=== PATIENT | male | born 1990 | race African-American/Black ===

== ENCOUNTER 2016-10-25 23:15 | Emergency (ER) | payer MEDICAID ==
[2016-10-26] MEDS ORDERED: OXYCODONE-ACETAMINOPHEN 5-325 MG TABLET PO ONE ×2 (02:46→03:57)
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
[2016-10-26] MEDS ORDERED: SILVER SULFADIAZINE 1% CREAM 25 GM TP ONE (04:34)
[2016-10-26] MEDS ORDERED: HYDROCODONE/ACETAMINOPHEN 5-325 MG 6 TAB/DSPK PO PRN (04:43)
[2016-10-26 05:22] VITALS: BP 108/55
== END 2016-10-26 05:20 | disposition short-term general hospital (02) ==
LOC: ER 23:15
DX: T22.311A Burn of third degree of right forearm, initial encounter (principal); X10.2XXA Contact with fats and cooking oils, initial encounter; Y93.G3 Activity, cooking and baking; Y92.009 Unspecified place in unspecified non-institutional (private) residence as the place of occurrence of the external cause
CPT/HCPCS: 99283; J3490

== ENCOUNTER → 2019-06-29 | Outpatient (CLI) | payer MEDICAID ==
[2019-06-29 10:54] LABS: INTERNATIONAL RATION (INR) 0.98
[2019-06-29 11:09] LABS: ANION GAP 11 (5-19); BLOOD UREA NITROGEN 10 mg/dL (7-20); CALCIUM 10.1 mg/dL (8.4-10.2); CARBON DIOXIDE 28 mmol/L (22-30); CHLORIDE 101 mmol/L (98-107); GLUCOSE 84 mg/dL (75-110); POTASSIUM 4.6 mmol/L (3.6-5.0)
[2019-07-01 16:59] LABS: HEPATITIS C QUANTITATION 529000 IU/mL (.)
== END ==
LOC: OD 10:01
PROVIDERS: ATTEND Internal Medicine Gastroenterology
DX: B18.2 Chronic viral hepatitis C (principal)
CPT/HCPCS: 36415; 80048; 81270; 82172; 82247; 82977; 83010; 83883; 84460; 85610; 86701; 87522